=== PATIENT | male | born 1985 | race Caucasian/White ===

== ENCOUNTER 2022-06-18 10:42 | Emergency (ER) | payer MEDICAID, SELFPAY ==
[2022-06-18 10:43] VITALS: BP 120/88; PULSE 98; RESP 16; TEMP 36.7; O2SAT 99; BMI 19.7
--- NOTE | 2022-06-18 11:55 | EDS_ITS ---
HPI <Dr. Denton Rust DO - Last Filed: 06/21/22 23:11> History of Present Illness Chief Complaint: Weakness Narrative Narrative: 36-year-old male presenting for leg weakness. He states that has been walking since 6 AM. He was trying to walk to [facility] for court date. He states he walks for at least 5 hours. And he ended up in [place]. He states I am just bad with directions. He states he was picked up by EMS because bystanders saw him laying on the road and he states he can no longer walk because his legs hurt too bad. Patient states his only medical problems of depression. After the patient told me this. He then states that he is pleading the fifth until his civil litigation attorney gets here. Patient appears to be very paranoid. He states that he is missing his court date today. He does not say what his court date is 4. PFSH <Dr. Denton Rust DO - Last Filed: 06/21/22 23:11> [facility] Medical History Depression Home Medications sertraline 25 mg tablet (Zoloft) 100 mg PO DAILY 06/18/22 [History Last Taken Unknown] trazodone 100 mg tablet 100 mg PO DAILY 06/18/22 [History Last Taken Unknown] Allergy/AdvReac Type Severity Reaction Status Date / Time No Known Allergies Allergy Verified 06/18/22 10:43 Social History Smoking Status: Current every day smoker tobacco type: cigarettes ROS <Dr. Denton Rust, - Last Filed: 06/21/22 23:11> ROS ED Constitutional Constitutional ED: Denies chills, fever(s) or sweats Eyes Eyes: Denies blurry vision or change in vision ENT ENT ED: Denies ear pain or sore throat Cardiovascular Cardiovascular: Denies chest pain, palpitations or racing heartbeat Respiratory/Chest Respiratory/Chest: Denies cough, dyspnea or sputum Gastrointestinal Gastrointestinal: Denies abdominal pain, constipation, diarrhea, nausea or vomiting Genitourinary Genitourinary ED: Denies dysuria, hematuria or urinary frequency Musculoskeletal Musculoskeletal: Reports other Details: Bilateral leg pain ; Denies myalgias or neck pain Integumentary Denies abscess, Abrasions or rash Neurologic Neurologic: Denies headache(s), paresthesias or weakness Psychiatric Psychiatric: Denies anxiety, depression, suicidal ideation or suicidal thoughts Endocrine Endocrinology: Denies polydipsia or polyuria EXAM <Dr. Denton Rust DO - Last Filed: 06/21/22 23:11> Physical Exam Const Vital Signs: 06/18/22 10:43 06/18/22 10:43 06/18/22 13:03 Temperature 98.1 F Temperature Source Temporal Pulse Rate 98 93 Respiratory Rate 16 16 Respiratory Effort Normal Non-Labored Respiratory Pattern Normal Blood Pressure 120/88 H 136/95 H Blood Pressure Mean 98 108 Pulse Ox 99 100 Oxygen Delivery Method Room Air Room Air 06/18/22 15:11 06/18/22 21:47 06/18/22 23:46 Temperature Temperature Source Pulse Rate 98 72 Respiratory Rate 18 18 16 Respiratory Effort Respiratory Pattern Blood Pressure 131/62 H Blood Pressure Mean 85 Pulse Ox 98 100 Oxygen Delivery Method Room Air Room Air 06/19/22 02:59 06/19/22 06:29 06/19/22 06:29 Temperature Temperature Source Pulse Rate 72 Respiratory Rate 16 17 17 Respiratory Effort Respiratory Pattern Blood Pressure 134/68 H 134/68 H Blood Pressure Mean 90 90 Pulse Ox 99 99 Oxygen Delivery Method Room Air General Appearance ED: Negative for pallor HEENT Reports normocephalic, head/scalp atraumatic and moist mucous membranes Eyes PERRL and EOMs intact bilaterally Neck no lymphadenopathy and supple Chest Wall inspection of chest normal and palpation of chest normal Resp normal respiratory effort and clear to auscultation bilaterally Auscultation: Negative for rales, rhonchi or wheezes Cardio regular rate and regular rhythm GI normal to inspection, nondistended, normoactive bowel sounds and non-distended Auscultation: normoactive bowel sounds Palpation: soft Narrative: Deferred Extremity normal to inspection General Extremety ED: Yes tenderness; Negative for edema General Extremity: Negative for edema Neuro oriented x3 and CN's II-XII intact bilaterally Sensorium / Orientation: alert Motor Exam: strength 5/5 throughout Psych mental status grossly normal Attitude: No agitated Skin no rashes or lesions noted and no wounds General Skin Exam: Negative for jaundice or pallor <Dr. Eh Tinoco MD - Last Filed: 06/18/22 20:44> Physical Exam Const Vital Signs: 06/18/22 10:43 06/18/22 10:43 06/18/22 13:03 Temperature 98.1 F Temperature Source Temporal Pulse Rate 98 93 Respiratory Rate 16 16 Respiratory Effort Normal Non-Labored Respiratory Pattern Normal Blood Pressure 120/88 H 136/95 H Blood Pressure Mean 98 108 Pulse Ox 99 100 Oxygen Delivery Method Room Air Room Air 06/18/22 15:11 06/18/22 21:47 06/18/22 23:46 Temperature Temperature Source Pulse Rate 98 72 Respiratory Rate 18 18 16 Respiratory Effort Respiratory Pattern Blood Pressure 131/62 H Blood Pressure Mean 85 Pulse Ox 98 100 Oxygen Delivery Method Room Air Room Air 06/19/22 02:59 06/19/22 06:29 06/19/22 06:29 Temperature Temperature Source Pulse Rate 72 Respiratory Rate 16 17 17 Respiratory Effort Respiratory Pattern Blood Pressure 134/68 H 134/68 H Blood Pressure Mean 90 90 Pulse Ox 99 99 Oxygen Delivery Method Room Air <Dr. Khanh Edmond MD - Last Filed: 06/19/22 07:22> Physical Exam Const Vital Signs: 06/18/22 10:43 06/18/22 10:43 06/18/22 13:03 Temperature 98.1 F Temperature Source Temporal Pulse Rate 98 93 Respiratory Rate 16 16 Respiratory Effort Normal Non-Labored Respiratory Pattern Normal Blood Pressure 120/88 H 136/95 H Blood Pressure Mean 98 108 Pulse Ox 99 100 Oxygen Delivery Method Room Air Room Air 06/18/22 15:11 06/18/22 21:47 06/18/22 23:46 Temperature Temperature Source Pulse Rate 98 72 Respiratory Rate 18 18 16 Respiratory Effort Respiratory Pattern Blood Pressure 131/62 H Blood Pressure Mean 85 Pulse Ox 98 100 Oxygen Delivery Method Room Air Room Air 06/19/22 02:59 06/19/22 06:29 06/19/22 06:29 Temperature Temperature Source Pulse Rate 72 Respiratory Rate 16 17 17 Respiratory Effort Respiratory Pattern Blood Pressure 134/68 H 134/68 H Blood Pressure Mean 90 90 Pulse Ox 99 99 Oxygen Delivery Method Room Air MDM <Dr. Denton Rust DO - Last Filed: 06/21/22 23:11> MDM MDM Narrative Medical decision making narrative: 36-year-old male presenting with bilateral leg pain. He states he was trying to walk to [facility] for a court date this morning. He states I am bad with directions. He ended up in [place]. He states he was brought in by EMS because he was too weak to walk anymore and he was found on the road. He denies head injury or LOC. Denies drug use or alcohol use. Patient appears to be very paranoid. Given that the patient was walking for several hours I did establish an IV and obtain lab work. I initially tried to give him IV fluids and he stated that he did not want them because he did not want anything infused into his body. Initially he thought maybe he was a little dehydrated but I do believe there is something psychiatric at this point. I had the geriatric social work professor speak with him at which point he was talking to her about how he was going nights because he was tired. Patient had reported to me that he was walking to a court date but had reported to her that he was walking to a big [place] dig. Patient reported feeling recorded for most of his life. He indicated to her that he was recording through his glasses. He indicated something similar in triage as the nurse was recording him with her glasses. In addition to this he reported somebody is putting up pictures that he went insane and killed people. He repeatedly states that he is pleading the fifth. I did try to redirect him and tell him that he is not in a court of law, and even reassured him that everything he says is private. Given that he appears to be manic and he has been up all night walking in addition to the paranoia and confusion I believe he will need inpatient treatment. The geriatric social work professor was in agreement. Blood work was obtained and a CBC shows a slightly cytosis of 13.8. Hemoglobin and hematocrit are stable. Platelets are normal. Creatinine is normal however he does have some prerenal azotemia with a BUN/creatinine ratio 25.9. His CPK came back elevated at 3589. At this point I recommended that he do does take the IV fluids I counseled him that it was only sodium chloride and nothing more. He was amenable to this. He will be given 2 L. EtOH negative. Working on obtaining urine drug screen and urinalysis. Rapid COVID-negative. Lab Data Labs: Laboratory Results - last 24 hr 06/18/22 06/18/22 06/18/22 12:10 12:10 12:10 WBC 13.8 H RBC 4.85 Hgb 14.7 Hct 43.0 MCV 88.7 MCH 30.3 MCHC 34.2 RDW Std Deviation 39.9 RDW Coeff of William 12.3 Plt Count 184 MPV 10.4 Immature Gran % (Auto) 0.600 Neut % (Auto) 84.0 H Lymph % (Auto) 7.5 L Mer[place]ether % (Auto) 7.7 Eos % (Auto) 0.0 Baso % (Auto) 0.2 Absolute Neuts (auto) 11.6 H Absolute Lymphs (auto) 1.04 Nucleated RBC % 0 Sodium 132 L Potassium 4.7 Chloride 99 Carbon Dioxide 21.0 Anion Gap 12 BUN 29 H Creatinine 1.12 Estim Creat Clear Calc 85.12 Est GFR (MDRD) Af Amer 95 Est GFR (MDRD) Non-Af 79 BUN/Creatinine Ratio 25.9 H Glucose 86 Calcium 9.5 Total Bilirubin 1.30 H AST 117 H ALT 50 Alkaline Phosphatase 62 Total Creatine Kinase 3589 H Total Protein 7.4 Albumin 4.3 Globulin 3.1 Albumin/Globulin Ratio 1.4 Urine Color Urine Clarity Urine pH Ur Specific Conover Urine Protein Urine Glucose (UA) Urine Ketones Urine Occult Blood Urine Nitrite Urine Bilirubin Urine Urobilinogen Ur Leukocyte Esterase Urine RBC Urine WBC Ur Squamous Epith Cells Urine Bacteria Urine Mucus Urine Opiates Screen Urine Methadone Screen Ur Barbiturates Screen Ur Phencyclidine Scrn Ur Amphetamines Screen MDMA (Ecstasy) Screen U Benzodiazepines Scrn Urine Cocaine Screen U Cannabinoids Screen Ur Drug Screen Comment Ethyl Alcohol < 3.0 06/18/22 06/18/22 15:00 15:00 WBC RBC Hgb Hct MCV MCH MCHC RDW Std Deviation RDW Coeff of William Plt Count MPV Immature Gran % (Auto) Neut % (Auto) Lymph % (Auto) Meriwether % (Auto) Eos % (Auto) Baso % (Auto) Absolute Neuts (auto) Absolute Lymphs (auto) Nucleated RBC % Sodium Potassium Chloride Carbon Dioxide Anion Gap BUN Creatinine Estim Creat Clear Calc Est GFR (MDRD) Af Amer Est GFR (MDRD) Non-Af BUN/Creatinine Ratio Glucose Calcium Total Bilirubin AST ALT Alkaline Phosphatase Total Creatine Kinase Total Protein Albumin Globulin Albumin/Globulin Ratio Urine Color Yellow Urine Clarity Clear Urine pH 6.0 Ur Specific Conover 1.015 Urine Protein 15 H Urine Glucose (UA) Normal Urine Ketones 50 H Urine Occult Blood Negative Urine Nitrite Negative Urine Bilirubin Negative Urine Urobilinogen Normal Ur Leukocyte Esterase Negative Urine RBC 0 SEEN Urine WBC 0 SEEN Ur Squamous Epith Cells 0 SEEN Urine Bacteria 0 SEEN Urine Mucus 0 SEEN Urine Opiates Screen NEGATIVE Urine Methadone Screen NEGATIVE Ur Barbiturates Screen NEGATIVE Ur Phencyclidine Scrn NEGATIVE Ur Amphetamines Screen POSITIVE H MDMA (Ecstasy) Screen POSITIVE H U Benzodiazepines Scrn NEGATIVE Urine Cocaine Screen NEGATIVE U Cannabinoids Screen NEGATIVE Ur Drug Screen Comment Ethyl Alcohol <Dr. Eh Tinoco MD - Last Filed: 06/18/22 20:44> [facility] Lab Data Attestation: I reviewed the patient's lab results. Lab results narrative: White count is slightly elevated. This is nonspecific. Comprehensive metabolic panel pills elevated BUN. GFR is normal. CPK is slightly elevated. Since numbers less than [phone] patient will not require admission. Urinalysis is negati ve. Talk screen was positive for MDMA and amphetamines. [place]. Patient has required no intervention. Patient will be admitted to psychiatric facility, [facility]. Patient's leukocytosis in all likelihood is due to the amphetamine and MDMA use. Labs: Laboratory Results - last 24 hr 06/18/22 06/18/22 06/18/22 12:10 12:10 12:10 WBC 13.8 H RBC 4.85 Hgb 14.7 Hct 43.0 MCV 88.7 MCH 30.3 MCHC 34.2 RDW Std Deviation 39.9 RDW Coeff of William 12.3 Plt Count 184 MPV 10.4 Immature Gran % (Auto) 0.600 Neut % (Auto) 84.0 H Lymph % (Auto) 7.5 L Mer[place]ether % (Auto) 7.7 Eos % (Auto) 0.0 Baso % (Auto) 0.2 Absolute Neuts (auto) 11.6 H Absolute Lymphs (auto) 1.04 Nucleated RBC % 0 Sodium 132 L Potassium 4.7 Chloride 99 Carbon Dioxide 21.0 Anion Gap 12 BUN 29 H Creatinine 1.12 Estim Creat Clear Calc 85.12 Est GFR (MDRD) Af Amer 95 Est GFR (MDRD) Non-Af 79 BUN/Creatinine Ratio 25.9 H Glucose 86 Calcium 9.5 Total Bilirubin 1.30 H AST 117 H ALT 50 Alkaline Phosphatase 62 Total Creatine Kinase 3589 H Total Protein 7.4 Albumin 4.3 Globulin 3.1 Albumin/Globulin Ratio 1.4 Urine Color Urine Clarity Urine pH Ur Specific Conover Urine Protein Urine Glucose (UA) Urine Ketones Urine Occult Blood Urine Nitrite Urine Bilirubin Urine Urobilinogen Ur Leukocyte Esterase Urine RBC Urine WBC Ur Squamous Epith Cells Urine Bacteria Urine Mucus Urine Opiates Screen Urine Methadone Screen Ur Barbiturates Screen Ur Phencyclidine Scrn Ur Amphetamines Screen MDMA (Ecstasy) Screen U Benzodiazepines Scrn Urine Cocaine Screen U Cannabinoids Screen Ur Drug Screen Comment Ethyl Alcohol < 3.0 06/18/22 06/18/22 15:00 15:00 WBC RBC Hgb Hct MCV MCH MCHC RDW Std Deviation RDW Coeff of William Plt Count MPV Immature Gran % (Auto) Neut % (Auto) Lymph % (Auto) Meriwether % (Auto) Eos % (Auto) Baso % (Auto) Absolute Neuts (auto) Absolute Lymphs (auto) Nucleated RBC % Sodium Potassium Chloride Carbon Dioxide Anion Gap BUN Creatinine Estim Creat Clear Calc Est GFR (MDRD) Af Amer Est GFR (MDRD) Non-Af BUN/Creatinine Ratio Glucose Calcium Total Bilirubin AST ALT Alkaline Phosphatase Total Creatine Kinase Total Protein Albumin Globulin Albumin/Globulin Ratio Urine Color Yellow Urine Clarity Clear Urine pH 6.0 Ur Specific Conover 1.015 Urine Protein 15 H Urine Glucose (UA) Normal Urine Ketones 50 H Urine Occult Blood Negative Urine Nitrite Negative Urine Bilirubin Negative Urine Urobilinogen Normal Ur Leukocyte Esterase Negative Urine RBC 0 SEEN Urine WBC 0 SEEN Ur Squamous Epith Cells 0 SEEN Urine Bacteria 0 SEEN Urine Mucus 0 SEEN Urine Opiates Screen NEGATIVE Urine Methadone Screen NEGATIVE Ur Barbiturates Screen NEGATIVE Ur Phencyclidine Scrn NEGATIVE Ur Amphetamines Screen POSITIVE H MDMA (Ecstasy) Screen POSITIVE H U Benzodiazepines Scrn NEGATIVE Urine Cocaine Screen NEGATIVE U Cannabinoids Screen NEGATIVE Ur Drug Screen Comment Ethyl Alcohol <Dr. Khanh Edmond MD - Last Filed: 06/19/22 07:22> MDM MDM Narrative Medical decision making narrative: 36-year-old male presenting with bilateral leg pain. He states he was trying to walk to [facility] for a court date this morning. He states I am bad with directions. He ended up in [place]. He states he was brought in by EMS because he was too weak to walk anymore and he was found on the road. He denies head injury or LOC. Denies drug use or alcohol use. Patient appears to be very paranoid. Given that the patient was walking for several hours I did establish an IV and obtain lab work. I initially tried to give him IV fluids and he stated that he did not want them because he did not want anything infused into his body. Initially he thought maybe he was a little dehydrated but I do believe there is something psychiatric at this point. I had the geriatric social work professor speak with him at which point he was talking to her about how he was going nights because he was tired. Patient had reported to me that he was walking to a court date but had reported to her that he was walking to a big [place] dig. Patient reported feeling recorded for most of his life. He indicated to her that he was recording through his glasses. He indicated something similar in triage as the nurse was recording him with her glasses. In addition to this he reported somebody is putting up pictures that he went insane and killed people. He repeatedly states that he is pleading the fifth. I did try to redirect him and tell him that he is not in a court of law, and even reassured him that everything he says is private. Given that he appears to be manic and he has been up all night walking in addition to the paranoia and confusion I believe he will need inpatient treatment. The geriatric social work professor was in agreement. Blood work was obtained and a CBC shows a slightly cytosis of 13.8. Hemoglobin and hematocrit are stable. Platelets are normal. Creatinine is normal however he does have some prerenal azotemia with a BUN/creatinine ratio 25.9. His CPK came back elevated at 3589. At this point I recommended that he do does take the IV fluids I counseled him that it was only sodium chloride and nothing more. He was amenable to this. He will be given 2 L. EtOH negative. Working on obtaining urine drug screen and urinalysis. Rapid COVID-negative. Patient has been here overnight waiting for psychiatric placement and transportation. There have been no issues overnight. Lab Data Labs: Laboratory Results - last 24 hr 06/18/22 06/18/22 06/18/22 12:10 12:10 12:10 WBC 13.8 H RBC 4.85 Hgb 14.7 Hct 43.0 MCV 88.7 MCH 30.3 MCHC 34.2 RDW Std Deviation 39.9 RDW Coeff of William 12.3 Plt Count 184 MPV 10.4 Immature Gran % (Auto) 0.600 Neut % (Auto) 84.0 H Lymph % (Auto) 7.5 L Mer[place] % (Auto) 7.7 Eos % (Auto) 0.0 Baso % (Auto) 0.2 Absolute Neuts (auto) 11.6 H Absolute Lymphs (auto) 1.04 Nucleated RBC % 0 Sodium 132 L Potassium 4.7 Chloride 99 Carbon Dioxide 21.0 Anion Gap 12 BUN 29 H Creatinine 1.12 Estim Creat Clear Calc 85.12 Est GFR (MDRD) Af Amer 95 Est GFR (MDRD) Non-Af 79 BUN/Creatinine Ratio 25.9 H Glucose 86 Calcium 9.5 Total Bilirubin 1.30 H AST 117 H ALT 50 Alkaline Phosphatase 62 Total Creatine Kinase 3589 H Total Protein 7.4 Albumin 4.3 Globulin 3.1 Albumin/Globulin Ratio 1.4 Urine Color Urine Clarity Urine pH Ur Specific [place] Urine Protein Urine Glucose (UA) Urine Ketones Urine Occult Blood Urine Nitrite Urine Bilirubin Urine Urobilinogen Ur Leukocyte Esterase Urine RBC Urine WBC Ur Squamous Epith Cells Urine Bacteria Urine Mucus Urine Opiates Screen Urine Methadone Screen Ur Barbiturates Screen Ur Phencyclidine Scrn Ur Amphetamines Screen MDMA (Ecstasy) Screen U Benzodiazepines Scrn Urine Cocaine Screen U Cannabinoids Screen Ur Drug Screen Comment Ethyl Alcohol < 3.0 06/18/22 06/18/22 15:00 15:00 WBC RBC Hgb Hct MCV MCH MCHC RDW Std Deviation RDW Coeff of William Plt Count MPV Immature Gran % (Auto) Neut % (Auto) Lymph % (Auto) Meriwether % (Auto) Eos % (Auto) Baso % (Auto) Absolute Neuts (auto) Absolute Lymphs (auto) Nucleated RBC % Sodium Potassium Chloride Carbon Dioxide Anion Gap BUN Creatinine Estim Creat Clear Calc Est GFR (MDRD) Af Amer Est GFR (MDRD) Non-Af BUN/Creatinine Ratio Glucose Calcium Total Bilirubin AST ALT Alkaline Phosphatase Total Creatine Kinase Total Protein Albumin Globulin Albumin/Globulin Ratio Urine Color Yellow Urine Clarity Clear Urine pH 6.0 Ur Specific Con[place] 1.015 Urine Protein 15 H Urine Glucose (UA) Normal Urine Ketones 50 H Urine Occult Blood Negative Urine Nitrite Negative Urine Bilirubin Negative Urine Urobilinogen Normal Ur Leukocyte Esterase Negative Urine RBC 0 SEEN Urine WBC 0 SEEN Ur Squamous Epith Cells 0 SEEN Urine Bacteria 0 SEEN Urine Mucus 0 SEEN Urine Opiates Screen NEGATIVE Urine Methadone Screen NEGATIVE Ur Barbiturates Screen NEGATIVE Ur Phencyclidine Scrn NEGATIVE Ur Amphetamines Screen POSITIVE H MDMA (Ecstasy) Screen POSITIVE H U Benzodiazepines Scrn NEGATIVE Urine Cocaine Screen NEGATIVE U Cannabinoids Screen NEGATIVE Ur Drug Screen Comment Ethyl Alcohol Discharge Plan Triage Chief Complaint: Weakness ED Provider: Denton Rust Dx/Rx/DC Orders Clinical Impression: Acute psychosis, Ecstasy use disorder, mild, abuse, Elevated blood pressure reading, Leukocytosis Prescriptions: No Action sertraline [Zoloft] 25 mg Tablet 100 mg PO DAILY trazodone 100 mg Tablet 100 mg PO DAILY Primary Care Provider: Care Physician,No Primary Referrals: Care Physician,No Primary [Primary Care Provider] - Disposition Disposition: Psychiatric Hospital or Unit Discharge Location: [facility] Discharge Date/Time: 06/19/22 09:09
[2022-06-18 12:19] LABS: Absolute Lymphocyte Count 1.04 X10^3/uL (0.83-4.51); Absolute Neutrophil Count 11.6 X10^3/uL (2.0-7.7); Basophil# 0.03 X10^3/uL; Basophil% 0.2 % (0-1); Hemoglobin 14.7 g/dL (13.0-16.5); Lymphocyte # 1.04 X10^3/ul (0.83-4.51); Lymphocyte % 7.5 % (19-41); Mean Corp Hgb Conc 34.2 g/dL (32-36); Mean Corpuscular Hgb 30.3 pg (27.0-32.0); Mean Corpuscular Volume 88.7 fL (80-94); Mean Platelet Vol. 10.4 fl (6.2-12.0); Monocyte# 1.07 X10^3/uL; Monocyte% 7.7 % (0-10); NRBC Flagged by Analyzer 0 % (0-5); Neutrophil # 11.61 X10^3/uL (2.7-7.7); Platelet Count 184 K/mm3 (150-450); RBC Distribution Width CV 12.3 % (11.6-14.6); RBC Distribution Width SD 39.9 fl (35.1-43.9); Red Blood Count 4.85 M/mm3 (4.6-6.2); White Blood Count 13.8 K/mm3 (4.4-11.0)
[2022-06-18 12:42] LABS: Alcohol, Blood (Medical)-Serum < 3.0 mg/dL
[2022-06-18 12:51] LABS: ALB/GLOB Ratio 1.4 RATIO (0.9-2.4); AST(SGOT) 117 U/L (15-37); Alanine Aminotransfer ALT/SGPT 50 U/L (16-61); Albumin, Serum 4.3 g/dL (3.2-5.0); Alkaline Phosphatase 62 U/L (45-117); Anion Gap 12 (5-15); BUN 29 mg/dL (7-18); BUN/Creat Ratio 25.9 RATIO (10-20); CPK Total, Creatine Kinase 3589 U/L (39-308); Calcium,Total 9.5 mg/dL (8.5-10.1); Chloride 99 mmol/L (98-107); Creatinine, Serum 1.12 mg/dL (0.70-1.30); EST Glomerular Filtration Rate 79 mL/min (>60); Est Glom Filt Rate - Afr Amer 95 mL/min (>60); Estimated Creatinine Clearance 85.12 ml/min; Globulin 3.1 g/dL (2.2-4.2); Glucose 86 mg/dL (74-106); Potassium 4.7 mmol/L (3.5-5.1); Protein, Total 7.4 g/dL (6.4-8.2); Sodium Level 132 mmol/L (136-145)
[2022-06-18] MEDS: 0.9% Normal Saline 1,000 ML 999 ML IV ×2 (13:01→15:10)
--- NOTE | 2022-06-18 13:01 | ED.RN ---
PATIENT WAS REQUESTING A REPORT OF EVERYTHING THAT WAS IN HIS BLOOD AND HIS IV. PATIENT STATES HE DOES NOT WANT ANYTHING PUT IN HIS IV. THIS RN EXPLAINED THAT WE ARE JUST GIVING PATIENT FLUIDS PATIENT CONTINUED TO REFUSE. PATIENT ALSO ASKED THIS RN TO OPEN HIS CURTAINS AND REMOVE THE PHONE FROM HIS ROOM.
[2022-06-18 13:03] VITALS: BP 136/95; PULSE 93; RESP 16; O2SAT 100
--- NOTE | 2022-06-18 13:21 | CM.ED ---
SW Note Referral Source: MD Referral Reason: Mental Health Per RN Nursing Note PATIENT WAS REQUESTING A REPORT OF EVERYTHING THAT WAS IN HIS BLOOD AND HIS IV. PATIENT STATES HE DOES NOT WANT ANYTHING PUT IN HIS IV. THIS RN EXPLAINED THAT WE ARE JUST GIVING PATIENT FLUIDS PATIENT CONTINUED TO REFUSE. PATIENT ALSO ASKED THIS RN TO OPEN HIS CURTAINS AND REMOVE THE PHONE FROM HIS ROOM. Patient told registration that he is has camera in his glasses and he also the also told her that he had given her his ID and she had his ID (which she had not). Per registration patient was paranoid. Chief Complaint: Patient said that he is at the hospital as I am going nuts. SW asked what that meant and patient said that he is tired. Patient was asked how he got to the hospital and he said ambulance and then said that I keep my answers simple. Patient confirmed he was walking prior to coming to the ED. SW asked where patient was walking to and patient said to a big shing ding.. you probably saw it. Patient said I feel I am being recorded most of my life and indicated he is recorded through his glasses. Patient did not make eye contact with this sheet writer and was continually watching other staff through his room interview, during the whole conversation. Patient is watchful and displays behaviors consistent with paranoia. SW noted to patient that he is from [facility] and is in [place]. SW asked why patient is in [place] and how he got to [place]. Patient said right now they are putting up pictures that I went insane and killed people... that's it.. I plead the 5th.. I am done talking. SW explained that this sheet writer is trying to help and patient said no your not. SW asked patient who was watching him and he said it's over. SW sat a few more minutes in his room and asked patient what would help him and he said not being them... work for government.. I am done.. I don't mean to be rude and you are nice and discontinued the interview again. Patient said that he is pleading the fifth and done talking. Patient had voiced that he is single and has 2 daughters Identified Gender: Patient appears to identify as a male Sexual Orientation: Unknown Living Situation: Per Girard patient's address is [facility] which is located [place] in [place]. Support: Unknown History: Unknown Education and Employment History: Unknown Mental Health Treatment: When asked patient said I plead the fifth.. I have talked enough Triggers and Stressors: Unknown Coping Skills: Unknown Abuse: Unknown Substance Abuse: SW asked but patient refused to answer Risk to Others Suicidal: Unknown Homicidal: Unknown Violence: Unknown Memory: Unable to determine Appearance: Disheveled Mood and Affect: Anxious, Bizarre, Paranoid Communication Pattern: Mumbles and difficult to understand. Thought Process: Patient is watchful. He appears to be responding to internal stimuli. General Intellectual Functioning: Average Judgment: Impaired Insight: Impaired Due to patient's behavior which is consistent with paranoia and his bizarre behavior he is at risk to himself and others . Patients refusal to provide information also increases patient's risk to self and others and this sheet writer is unable to validate any information due to lack of information. SW consulted Crisis and they have no record of involvement with patient . SW consulted with MD Rust and he concurred that patient would benefit from inpatient psychiatric treatment for stabilization and med management. Plan: Inpatient psych Soumya COUGHLIN
[2022-06-18 15:11] VITALS: PULSE 98; RESP 18; O2SAT 98
[2022-06-18 15:22] LABS: Bacteria 0 SEEN /hpf (None Seen); Mucous, Urine 0 SEEN /hpf (<or=2+); Red Blood Cells-Urine 0 SEEN /hpf (0-5); Squamous Epithelial Cells - UA 0 SEEN /hpf (0-5); White Blood Cells 0 SEEN /hpf (0-5)
[2022-06-18 15:24] LABS: Color, Urine Yellow (Yellow); Glucose, Dipstick Normal (Normal); Ketone-Dipstick 50 mg/dl (Negative); Leukocyte Esterase-Dipstick Negative /ul (Negative); Nitrite-Dipstick Negative (Negative); Occult Blood-Urine Negative /ul (Negative); Protein-Dipstick 15 mg/dl (Negative); Specific Gravity, Urine 1.015 (1.002-1.030); Urine Bilirubin Dipstick Negative (Negative); Urine Clarity Clear (Clear); Urine Urobilinogen Normal (Normal)
[2022-06-18 15:53] LABS: Amphetamine Urine VISTA POSITIVE (<1000 ng/mL); Barbiturate Urine VISTA NEGATIVE (< 200 ng/mL); Benzodiazepine Urine VISTA NEGATIVE (< 200 ng/mL); Cocaine Urine VISTA NEGATIVE (< 300 ng/mL); Ecstacy Urine VISTA POSITIVE (< 500 ng/mL); Methadone Urine VISTA NEGATIVE (< 300 ng/mL); PCP Urine VISTA NEGATIVE (< 25 ng/mL); THC Urine VISTA NEGATIVE (< 50 ng/mL); Vista UDS pH Range 5
--- NOTE | 2022-06-18 15:55 | CM.ED ---
[facility] received call [facility]. [facility] but [facility] no beds tonight. Patient could come after 9am tomorrow. OSCAR will update [facility] regarding placement. OSCAR faxed referral to [facility], [facility] and [place] [facility]. OSCAR received [facility] inquiring about the status of patient. OSCAR advised to speak to the RN regarding medical update. OSCAR updated airways operations specialist Soumya COUGHLIN
--- NOTE | 2022-06-18 16:00 | EKG12_ITS ---
Test Reason : Blood Pressure : / mmHG Vent. Rate : 082 BPM Atrial Rate : 082 BPM P-R Int : 116 ms QRS Dur : 082 ms QT Int : 368 ms P-R-T Axes : 028 085 076 degrees QTc Int : 429 ms Normal sinus rhythm Normal ECG Confirmed by JONATHAN NETTLES, GENNA ([id number]), medical transcription editor BENJA SIMEON ([id number]) on 06/20/2022 1:17:04 PM Referred By: EMMANUEL Confirmed By:GENNA CASTILLO MD
--- NOTE | 2022-06-18 16:18 | ED.RN ---
PT REPORTS TO THIS RN HIS SOCIAL SECURITY NUMBER IS [id number]. [facility] CALLED REQUESTING URINE DRUG SCREEN RESULTS AND EKG TO BE FAXED TO THEM. GENERATIONS REPORTS THAT THEY WON'T BE ABLE TO ACCEPT PT WITHOUT A SOCIAL SECURITY NUMBER.
--- NOTE | 2022-06-18 19:20 | ED.RN ---
THIS RN RETURNED CALL TO [facility] AND ANSWERED REMAINING QUESTIONS FOR STAFF.
--- NOTE | 2022-06-18 19:25 | CM.ED ---
Patient declined at [place]. Patient on wait list at [facility] (which does not mean he has been accepted). OSCAR called [facility]. They have beds. OSCAR faxed referral to [facility]. Soumya COUGHLIN
--- NOTE | 2022-06-18 19:30 | CM.ED ---
OSCAR called [facility]. They have answers to the questions that the MD had regarding patient so she does not believe it will be long before a decision is made. OSCAR faxed a referral to [facility]. Soumya COUGHLIN
--- NOTE | 2022-06-18 20:26 | CM.ED ---
Addendum entered by Soumya Ch 06/18/22 21:30: Elaine called from [facility] called. Patient accepted by MD [facility]. Going to [facility]. RN to RN [phone] Option 1. Ethel, secretary to board of commissioners, to arrange for transportation. SOCAR called [facility] and advised no bed needed for patient. OSCAR called [facility] and advised that had secured bed for patient. OSCAR called [facility] and cancelled referral. Plan: [facility] Soumya COUGHLIN Original Note: OSCAR received call from Elaine from [facility]. She asked if patient could do his ADL's and walk. OSCAR spoke to JOSE RAMON Carmichael and cnc mill and lathe operatorJOSE RAMON Castrejon. Per Lucía patient can walk and per Jany she did not see any reason why patient could NOT do his ADL's. OSCAR faxed tox screen to Elaine at [facility]. OSCAR provided Elaine with patient's SSN. OSCAR faxed face sheet and drug screen to [facility]. Soumya COUGHLIN
[2022-06-18 21:47] VITALS: BP 131/62; PULSE 72; RESP 18; O2SAT 100
[2022-06-18 23:46] VITALS: RESP 16
[2022-06-19 02:59] VITALS: RESP 16
[2022-06-19 06:29] VITALS: BP 134/68; PULSE 72; RESP 17; O2SAT 99
== END 2022-06-19 09:09 ==
PROVIDERS: Emergency Provider Student in an Organized Health Care Education/Training Program; Visit Provider Student in an Organized Health Care Education/Training Program
DX: F23 Brief psychotic disorder (principal); D72.829 Elevated white blood cell count, unspecified; R03.0 Elevated blood-pressure reading, without diagnosis of hypertension; M79.605 Pain in left leg; F17.210 Nicotine dependence, cigarettes, uncomplicated; Z20.822 Contact with and (suspected) exposure to COVID-19; F32.A Depression, unspecified; Z79.899 Other long term (current) drug therapy; M79.604 Pain in right leg; F16.90 Hallucinogen use, unspecified, uncomplicated
CPT/HCPCS: 80053; 80307; 81001; 82077; 82550; 85025; 87811; 93005; 96360; 96361; 99284; J7030; A4216